=== PATIENT | female | born 1995 | race Caucasian/White ===

== ENCOUNTER 2018-05-04 10:01 | Emergency (ER) | payer SELFPAY ==
[2018-05-04 11:14] LABS: Bilirubin Negative (Negative); Blood, Urine Negative (Negative); Clarity CLEAR (Clear); Glucose, Urine (Dipstick) Negative (Negative); Leukocyte Negative (Negative); Nitrite Negative (Negative); Protein, Urine (Dipstick) Negative (Neg-Trace); Specific Gravity, Urine 1.023 (1.002-1.036); Urobilinogen 0.2 mg/dL (0.2-1.0)
[2018-05-04 11:20] LABS: Pregnancy Test - Urine (BHCG) Negative (Negative); Pregu Control Background? CLEAR/WHITE (CLR/WHITE); Pregu Control Bar Appear? YES (CONTROL BAR); Specific Gravity 1.023 (1.002-1.036)
[2018-05-04] MEDS ORDERED: Fluconazole 100 MG TAB PO SCH (11:30)
[2018-05-04 22:48] LABS: Chlamydia by PCR Not Detected (NotDetected); GC by PCR Not Detected (NotDetected)
== END 2018-05-04 12:33 | disposition home or self-care (01) ==
LOC: ERS 10:01
DX: B37.3 Candidiasis of vulva and vagina (principal); G43.909 Migraine, unspecified, not intractable, without status migrainosus; F17.210 Nicotine dependence, cigarettes, uncomplicated; Z79.899 Other long term (current) drug therapy
CPT/HCPCS: 81003; 81025; 87480; 87491; 87510; 87591; 87660; 99283